=== PATIENT | male | born 1980 | race Caucasian/White ===

== ENCOUNTER 2025-01-27 11:51 | Emergency (ER) | payer SELFPAY ==
[2025-01-27 12:04] VITALS: BP 150/92
--- NOTE | 2025-01-27 15:22 | ED.GENMED ---
History of Present Illness
General
Chief Complaint: Skin Surface Trauma
Source: patient
Exam Limitations: none
Time Seen by Provider: 01/27/25 12:48
Nursing documentation reviewed up to this point in time: agreed with
History of Present Illness
History of Present Illness:
44-year-old male presents with minor hand laceration. Patient says that he was at work and excellently cut with a straight blade on the right lateral aspect of his hand. Tetanus is up-to-date. Came in for repair.
Review of Systems
Review of Systems
All Other Systems: ROS reviewed and negative except as documented in HPI and ROS
Skin: Reports other (Laceration)
Phy Exam
Physical Exam
Physical Exam:
General: Well appearing and non-toxic
HEENT: protecting airway
Neck: appears supple
CV: No evidence of cyanosis
Resp: No accessory muscle use
Abd: Non-distended
Extremities: No deformities
Neuro: Alert
Psych: Normal affect
Skin: On exam of the right hand directly over the hyperthenar eminence he has approximately 3 cm superficial laceration the central portion of which is a bit deeper and gaping; no foreign body noted
Scores
Heart Failure Risk
Heart Failure Risk Score: Not Applicable
Heart Score for Chest Pain Patients
STEMI patient?: Not applicable
Withdrawal Assessment of Alcohol
Withdrawal Assessment Completed?: Not applicable
Course
Vital Signs
Initial and Last Documented VS:
Initial Vital Signs
Temp Pulse Resp BP Pulse Ox
36.8 C 120 16 150/92 98
01/27/25 12:04 01/27/25 12:04 01/27/25 12:04 01/27/25 12:04 01/27/25 12:04
Last Documented Vital Signs
Temp Pulse Resp BP Pulse Ox
36.8 C 120 16 150/92 98
01/27/25 12:04 01/27/25 12:04 01/27/25 12:04 01/27/25 12:04 01/27/25 12:04
Procedures
Laceration Closure
Right Hand:
Status of Wound: clean
Size of Wound in cm: 3 (3 cm superficial laceration but only the central portion is gaping, this area is approximately half a centimeter)
Description of Wound Edges: sharp
Preparation: cleaned with saline
Revision/Debridement: routine- no revision
Type of Closure: single layer closure
Skin Closure Material: 4-0 nylon
Number of sutures: 1
Additional information:
1 suture to close central aspect; the rest of the laceration is very superficial was approximated with Steri-Strips and clean dressing applied
MDM/Problems Addressed
Differential Diagnosis Includes:
Hand laceration.
MDM/Problems Addressed:
Hand laceration repaired as documented. Return in a week for suture removal. Tetanus up-to-date. Return precautions given.
*Pulse Oximetry
Patient hypoxic: no
*Critical Care Note
Total Time (30-74mins, 75-104mins- exclusive of procedures): Not Applicable
Data Reviewed
Source: patient
ED Attending Note
-
Portions of this chart may have been created with voice recognition software.� Occasional wrong word or��sound alike� substitutions may have occurred due to the inherent limitations of voice recognition software.
Discharge Plan
Departure
Patient Disposition: Home (Routine Discharge)
Date of Disposition: 01/27/25
Time of Disposition: 13:35
Patient with high blood pressure during this ER visit?: Yes
Discharge Problem:
Hand laceration
Instructions: Laceration Repair With Stitches (DC)
Referrals:
Li Barber, [Family Provider] -
Activity Restrictions/Additional Instructions:
Your stitches must come out in a week. You can either go to urgent care, come back to the ER, or see your primary doctor to have it removed. If you notice signs of infection return to the emergency room immediately.
Interventions
Interventions:
*Risk Screen - Suicide Last Done: 01/27/25 12:04
*General Assessment Last Done: 01/27/25 12:31
*Neglect/Abuse Screening Last Done: 01/27/25 12:04
*ED- Fall Risk Assessment Last Done: 01/27/25 12:31
*ED COVID-19 Vaccine History Last Done: 01/27/25 12:31
*Nursing Disposition Last Done: 01/27/25 13:44
ED-Skin Assessment Last Done: 01/27/25 12:31
Discharge Date and Time
Discharge Date/Time: 01/27/25 13:45
Print Language: SOMALI
== END 2025-01-27 13:45 | disposition home or self-care (01) ==
LOC: EMR 11:51
PROVIDERS: EMERGENCY PHYSICIAN Emergency Medicine; FAMILY PHYSICIAN Family Medicine
DX: S61.411A Laceration without foreign body of right hand, initial encounter (principal); W26.8XXA Contact with other sharp object(s), not elsewhere classified, initial encounter
CPT/HCPCS: 99282; 12002